=== PATIENT | female | born 1930 | race Hispanic/Latino ===

== ENCOUNTER 2018-02-14 12:30 | Emergency (ER) | payer MEDICARE ==
[2018-02-14 12:30] VITALS: BMI 29.5
[2018-02-14 12:44] VITALS: TEMP 98.3
--- NOTE | 2018-02-14 13:58 | ED PDOC ---
HPI: Hypertension/Hypotension Time Seen by Provider: 02/14/18 13:26 Chief Complaint (Nursing): High Blood Pressure Chief Complaint (Provider): elevated BP History Per: Patient (87 y/o female sent by Dr. Sanderson to ED for elevated BP noted 220/100 prior to prep for catarract surgery. Patient states she took metoprolol 100 mg today. As per daughter, patient's physician had given her medication list with hctz 12. mg daily listed (patient denies having this medication as part of her treatment for BP). Was given iv medication for hypertension by Dr. Era benitez. Denies ay chest pain/sob/abd pain/weakness. Daughter notes patient has been anxious today prior to surgery. Apresoline 10mg iv given by Dr. Sanderson) Past Medical History Reviewed: Historical Data, Nursing Documentation, Vital Signs Vital Signs: Last Vital Signs Temp 98.3 F 02/14/18 12:40 Pulse 80 02/14/18 12:40 Resp 16 02/14/18 12:40 BP 205/88 H 02/14/18 13:39 Pulse Ox 98 02/14/18 12:40 - Medical History PMH: Arthritis (general), HTN, Osteoporosis Denies: Chronic Kidney Disease - Family History Family History: States: No Known Family Hx - Home Medications Home Medications: Ambulatory Orders Medication Instructions Recorded Diclofenac Sodium [Voltaren] 75 mg PO BID 02/14/18 Hydrochlorothiazide [Microzide] 12.5 mg PO DAILY 02/14/18 Metoprolol Succinate XL [Toprol XL] 50 mg PO BID 02/14/18 Omeprazole 40 mg PO DAILY 02/14/18 - Allergies Allergies/Adverse Reactions: Allergies Allergy/AdvReac Type Severity Reaction Status Date / Time No Known Allergies Allergy Verified 02/14/18 12:40 Review of Systems ROS Statement: Except As Marked, All Systems Reviewed And Found Negative Physical Exam - Reviewed Nursing Documentation Reviewed: Yes Vital Signs Reviewed: Yes - Physical Exam Appears: Positive for: Well, Non-toxic, No Acute Distress Head Exam: Positive for: ATRAUMATIC, NORMAL INSPECTION, NORMOCEPHALIC Skin: Positive for: Normal Color, Warm, DRY Eye Exam: Positive for: Normal appearance, EOMI, PERRL. Negative for: Other (left pupil dilated) ENT: Positive for: Normal ENT Inspection Neck: Positive for: Normal, Painless ROM Cardiovascular/Chest: Positive for: Regular Rate, Rhythm Respiratory: Positive for: CNT, Normal Breath Sounds Gastrointestinal/Abdominal: Positive for: Normal Exam, Soft Back: Positive for: Normal Inspection Extremity: Positive for: Normal ROM Neurologic/Psych: Positive for: Alert, Oriented - Laboratory Results Result Diagrams: 02/14/18 13:40 02/14/18 13:40 - ECG O2 Sat by Pulse Oximetry: 98 - Progress ED Course And Treament: hctz 12.5 mg x 1 dose xanax 0.25 mg x 1 dose repeat bp 188/66 Disposition - Clinical Impression Clinical Impression: Hypertensive urgency - Patient ED Disposition Is Patient to be Admitted: No - Disposition Disposition: Routine/Home Disposition Time: 16:29 Condition: FAIR Instructions: High Blood Pressure (DC), DASH Diet
[2018-02-14 14:09] LABS: BASO % 0.6 % (0.0-2.0); EOS # 0.1 K/uL (0.0-0.7); EOS % 1.4 % (0.0-4.0); HEMOGLOBIN 13.6 g/dL (12.0-16.0); LYMPH # 1.6 K/uL (1.0-4.3); LYMPH % 26.3 % (20.0-40.0); MEAN CELL VOLUME 86.1 fl (81.0-99.0); MEAN CORPUSCULAR HEMOGLOBIN 29.9 pg (27.0-31.0); MEAN CORPUSCULAR HGB CONC 34.8 g/dL (33.0-37.0); MONO # 0.4 K/uL (0.0-0.8); MONO % 6.1 % (0.0-10.0); NEUT % 65.6 % (50.0-75.0); NRBC % 0.1 % (0.0-0.0); RBC 4.55 Mil/uL (3.80-5.20); RED CELL DISTRIBUTION WIDTH 14.5 % (11.5-14.5); WHITE BLOOD COUNT 6.1 K/uL (4.8-10.8)
[2018-02-14 14:19] LABS: ALB/GLOB RATIO 1.1 (1.0-2.1); ALBUMIN 3.9 g/dL (3.5-5.0); ALT/SGPT 27 U/L (9-52); AST/SGOT 27 U/L (14-36); BLOOD UREA NITROGEN 15 mg/dl (7-17); CALCIUM 9.7 mg/dL (8.4-10.2); GFR NON-AFRICAN AMERICAN 53
[2018-02-14 14:43] LABS: URINE BACTERIA MOD (<OCC); URINE BILIRUBIN NEGATIVE (NEGATIVE); URINE BLOOD NEGATIVE (NEGATIVE); URINE CLARITY CLEAR (Clear); URINE COLOR STRAW (YELLOW); URINE GLUCOSE (UA) NEG (Normal); URINE LEUKOCYTE ESTERASE NEG Leu/uL (Negative); URINE PROTEIN NEGATIVE (NEGATIVE); URINE UROBILINOGEN 0.2-1.0 mg/dL (0.2-1.0)
[2018-02-14 16:26] VITALS: BP 188/66; PULSE 84; RESP 17
[2018-02-14 16:30] VITALS: O2SAT 98
== END 2018-02-14 16:37 | disposition home or self-care (01) ==
LOC: H.ER 12:30
DX: I10 Essential (primary) hypertension (principal)

== ENCOUNTER 2018-02-28 10:17 | Day surgery (SDC) | payer MEDICARE ==
[2018-02-28] MEDS ORDERED: Maxitrol Opht Susp ONE (12:19)
[2018-02-28] MEDS ORDERED: Lidocaine 1% 20 MG/2 ML PF AMP ONE (12:19)
[2018-02-28] MEDS ORDERED: EPINEPHrine 1 mg/ml (1:1000) Inj ONE (12:19)
[2018-02-28] MEDS ORDERED: Tetracaine 0.5% Ophth 2 ML BOTTLE ONE (12:19)
[2018-02-28] MEDS ORDERED: Chondroitin/Hyaluronate Opth Syringe KIT (0.55 ml-0.5 ml) IO ONE (12:20)
[2018-02-28] MEDS ORDERED: CA CL/K CL/NA CL 500 ML IR ONE (12:20)
[2018-02-28] MEDS ORDERED: STERILE IRRIGATING SOLUTION 45 ML IR ONE (12:20)
[2018-02-28] MEDS ORDERED: Pilocarpine 1% Opht Soln ONE (12:20)
[2018-02-28] MEDS ORDERED: Carbachol 0.01% IO ONE (12:21)
[2018-02-28 13:01] VITALS: RESP 18
[2018-02-28] MEDS ORDERED: Phenylephrine 2.5% Opht Soln OS ONE (13:14)
[2018-02-28] MEDS ORDERED: Flurbiprofen 0.03% Opht SOLN OS SCH (13:15)
[2018-02-28] MEDS ORDERED: Tropicamide 1% Opht 150 DROP/15 ML OS SCH (13:15)
[2018-02-28] MEDS ORDERED: Lactated Ringer's 1,000 ML IV ONE (13:55)
[2018-02-28] MEDS ORDERED: Tetracaine 0.5% Ophth 2 ML BOTTLE OS ONE (14:05)
[2018-02-28] MEDS: Povidone Iodine 5% Opht SOLUTION ONE ×2 (14:10→14:15)
[2018-02-28 16:14] VITALS: O2SAT 99
[2018-02-28 16:17] VITALS: BP 152/78; PULSE 78; TEMP 97.6
--- NOTE | 2018-03-01 11:49 | OP ---
PROCEDURE DATE: 02/28/18 SURGEON: KARENA BRYANT MD ANESTHESIOLOGIST: FLAVIA SOTELO MD ANESTHESIA: LOCAL / IV SEDATION PREOPERATIVE DIAGNOSIS: CATARACT LEFT EYE. POSTOPERATIVE DIAGNOSIS: CATARACT LEFT EYE. OPERATION: CLEAR CORNEAL PHACOEMULSIFICATION WITH LENS IMPLANT LEFT EYE. PREPARATION AND PROCEDURE: After the patient was prepped and draped in the usual manner for sterile ophthalmic surgery, local IV sedation was administered; eye seals were applied to the upper and lower lid margins and an adult wire lid speculum was placed within the lids. Under microsurgical control, a two-step clear corneal incision was made into the anterior chamber. The initial incision was perpendicular to the corneal plane. The second incision with the keratome was placed at a 45-degree angle to the first incision. One cc of one percent Xylocaine MPF was instilled into the anterior chamber to achieve proper intraocular anesthesia. At this time, the Viscoelastic was injected into the anterior chamber for protection of the endothelium and for maintenance of the chamber depth. A 360-degree continuous curvilinear capsulorrhexis was performed using a pre-bent 25-gauge needle. Hydrodissection and hydrodelineation were performed using a Albarado cannula and balanced salt solution. Utilizing the tip of the Albarado cannula, the nucleus was rotated freely within the capsular bag. A standard one-handed phacoemulsification was utilized at this time for sculpting and rotating of the nucleus. The nucleus was fragmented in its entirety and aspirated without any consequence. A standard I&A was carried out for the residual cortical material. No residual material was noted within the capsular bag. The posterior capsule was noted to be clear. Additional Viscoelastic was injected into the capsular bag in preparation for lens implantation. After this has been satisfactorily achieved the intraocular lens injected through the corneal incision into the capsular bag. The intraocular lens was manipulated until it was properly oriented and the Viscoelastic was evacuated from the capsular bag and anterior chamber. The anterior chamber was reformed with balanced salt solution. The corneal incision was irrigated with BSS. The intraocular pressure was found to be within normal limits. This terminated the procedure. The speculum and lid drapes were removed. TobraDex ophthalmic suspension and Pilocarpine 1% drops one drop was applied to the eye. POSTOPERATIVE CONDITION: The patient was brought to the Post anesthesia Recovery area with stable vital signs. DKARENA PASCAL MD
== END 2018-02-28 16:15 | disposition home or self-care (01) ==
LOC: H.OPSURG 10:17
PROVIDERS: ATTEND Ophthalmology
DX: H25.811 Combined forms of age-related cataract, right eye (principal); M19.90 Unspecified osteoarthritis, unspecified site; I10 Essential (primary) hypertension; K21.9 Gastro-esophageal reflux disease without esophagitis; M81.0 Age-related osteoporosis without current pathological fracture
CPT/HCPCS: 66984; J0171; J7120; V2632

== ENCOUNTER 2018-04-04 10:07 | Day surgery (SDC) | payer MEDICARE ==
[2018-04-04] MEDS ORDERED: Lidocaine 1% 20 MG/2 ML PF AMP ONE (10:48)
[2018-04-04] MEDS ORDERED: Tetracaine 0.5% Ophth 2 ML BOTTLE ONE (10:48)
[2018-04-04] MEDS ORDERED: Maxitrol Opht Susp ONE (10:48)
[2018-04-04] MEDS ORDERED: STERILE IRRIGATING SOLUTION 45 ML IR ONE (10:49)
[2018-04-04] MEDS ORDERED: CA CL/K CL/NA CL 500 ML IR ONE (10:49)
[2018-04-04] MEDS ORDERED: Chondroitin/Hyaluronate Opth Syringe KIT (0.55 ml-0.5 ml) IO ONE ×3 (10:49→12:47)
[2018-04-04] MEDS ORDERED: Carbachol 0.01% IO ONE (10:50)
[2018-04-04] MEDS ORDERED: Povidone Iodine 5% Opht SOLUTION ONE (10:50)
[2018-04-04] MEDS ORDERED: Metoprolol Succinate 50 mg XL Tab PO STA ×2 (11:22→13:53)
[2018-04-04] MEDS ORDERED: Phenylephrine 2.5% Opht Soln OD SCH (11:30)
[2018-04-04] MEDS ORDERED: Tropicamide 1% Opht 150 DROP/15 ML OD SCH (11:30)
[2018-04-04] MEDS ORDERED: Flurbiprofen 0.03% Opht SOLN OD SCH (11:30)
[2018-04-04 11:31] VITALS: RESP 18
[2018-04-04] MEDS ORDERED: Phenylephrine 2.5% Opht Soln OD ONE (11:45)
[2018-04-04] MEDS ORDERED: Metoprolol Succinate 50 mg XL Tab PO ONE ×2 (11:45→14:10)
[2018-04-04] MEDS ORDERED: Tropicamide 1% Opht 150 DROP/15 ML RIGHTEYE ONE (11:45)
[2018-04-04] MEDS ORDERED: Midazolam 2 MG/2 ML VIAL ONE (12:37)
[2018-04-04] MEDS ORDERED: Sodium Chloride 0.9% 500 ML IV ONE (12:40)
[2018-04-04] MEDS ORDERED: Lactated Ringer's 500 ML IV ONE (12:40)
[2018-04-04] MEDS: EPINEPHrine 1 mg/ml (1:1000) Inj ONE ×2 (12:46→12:49)
[2018-04-04] MEDS ORDERED: Maxitrol Opht Susp OD ONE ×2 (12:48→12:55)
[2018-04-04] MEDS ORDERED: Acetylcholine 1% Opth System Pack IO ONE ×2 (12:48→12:51)
[2018-04-04] MEDS: Pilocarpine 1% Opht Soln ONE ×2 (12:48→12:53)
[2018-04-04] MEDS ORDERED: BSS 15 ML SOL IR ONE (12:50)
[2018-04-04 14:43] VITALS: PULSE 61
[2018-04-04 15:10] VITALS: BP 204/91; TEMP 98; O2SAT 98
--- NOTE | 2018-04-05 07:28 | OP ---
PROCEDURE DATE: 04/04/2018 SURGEON: KARENA BRYANT MD ANESTHESIOLOGIST: MU PEREZ; MIKE AVILA MD ANESTHESIA: LOCAL / IV SEDATION PREOPERATIVE DIAGNOSIS: CATARACT RIGHT EYE. POSTOPERATIVE DIAGNOSIS: CATARACT RIGHT EYE. OPERATION: CLEAR CORNEAL PHACOEMULSIFICATION WITH LENS IMPLANT RIGHT EYE. PREPARATION AND PROCEDURE: After the patient was prepped and draped in the usual manner for sterile ophthalmic surgery, local IV sedation was administered; eye seals were applied to the upper and lower lid margins and an adult wire lid speculum was placed within the lids. Under microsurgical control, a two-step clear corneal incision was made into the anterior chamber. The initial incision was perpendicular to the corneal plane. The second incision with the keratome was placed at a 45-degree angle to the first incision. One cc of one percent Xylocaine MPF was instilled into the anterior chamber to achieve proper intraocular anesthesia. At this time, the Viscoelastic was injected into the anterior chamber for protection of the endothelium and for maintenance of the chamber depth. A 360-degree continuous curvilinear capsulorrhexis was performed using a pre-bent 25-gauge needle. Hydrodissection and hydrodelineation were performed using a Albarado cannula and balanced salt solution. Utilizing the tip of the Albarado cannula, the nucleus was rotated freely within the capsular bag. A standard one-handed phacoemulsification was utilized at this time for sculpting and rotating of the nucleus. The nucleus was fragmented in its entirety and aspirated without any consequence. A standard I&A was carried out for the residual cortical material. No residual material was noted within the capsular bag. The posterior capsule was noted to be clear. Additional Viscoelastic was injected into the capsular bag in preparation for lens implantation. After this has been satisfactorily achieved the intraocular lens injected through the corneal incision into the capsular bag. The intraocular lens was manipulated until it was properly oriented and the Viscoelastic was evacuated from the capsular bag and anterior chamber. The anterior chamber was reformed with balanced salt solution. The corneal incision was irrigated with BSS. The intraocular pressure was found to be within normal limits. This terminated the procedure. The speculum and lid drapes were removed. TobraDex ophthalmic suspension and Pilocarpine 1% drops one drop was applied to the eye. POSTOPERATIVE CONDITION: The patient was brought to the Post anesthesia Recovery area with stable vital signs. DKARENA PASCAL MD
== END 2018-04-04 16:01 | disposition still patient (30) ==
LOC: H.OPSURG 10:07
PROVIDERS: ATTEND Ophthalmology
DX: H25.811 Combined forms of age-related cataract, right eye (principal); I10 Essential (primary) hypertension; K21.9 Gastro-esophageal reflux disease without esophagitis; M81.0 Age-related osteoporosis without current pathological fracture; Z85.3 Personal history of malignant neoplasm of breast
CPT/HCPCS: 66984; J0171; J2250; J3010; J7030; V2632

== ENCOUNTER 2018-04-04 15:58 | Emergency (ER) | payer MEDICARE ==
[2018-04-04 15:58] VITALS: BMI 29.5
[2018-04-04 16:04] VITALS: RESP 20; O2SAT 98
[2018-04-04 16:08] VITALS: TEMP 98.6
[2018-04-04] MEDS ORDERED: EnalaprilAT 1.25 mg/ml Inj IVP STA (16:18)
[2018-04-04] MEDS ORDERED: EnalaprilAT 1.25 mg/ml Inj ONE ×2 (16:37→16:39)
[2018-04-04 17:30] LABS: BASO % 0.6 % (0.0-2.0); EOS # 0.1 K/uL (0.0-0.7); EOS % 1.7 % (0.0-4.0); HEMOGLOBIN 12.3 g/dL (12.0-16.0); LYMPH # 1.7 K/uL (1.0-4.3); LYMPH % 30.9 % (20.0-40.0); MEAN CORPUSCULAR HEMOGLOBIN 29.4 pg (27.0-31.0); MEAN CORPUSCULAR HGB CONC 33.4 g/dL (33.0-37.0); MEAN PLATELET VOLUME 8.5 fl (7.2-11.7); MONO # 0.4 K/uL (0.0-0.8); MONO % 7.5 % (0.0-10.0); NEUT # 3.4 K/uL (1.8-7.0); NEUT % 59.3 % (50.0-75.0); RBC 4.18 Mil/uL (3.80-5.20); RED CELL DISTRIBUTION WIDTH 14.8 % (11.5-14.5); WHITE BLOOD COUNT 5.7 K/uL (4.8-10.8)
[2018-04-04 17:37] LABS: CALCIUM 9.6 mg/dL (8.4-10.2)
[2018-04-04 17:48] LABS: TROPONIN I 0.052 ng/mL (0.00-0.120)
--- NOTE | 2018-04-04 17:52 | ED PDOC ---
HPI: Hypertension/Hypotension Time Seen by Provider: 04/04/18 16:02 Chief Complaint (Nursing): High Blood Pressure Chief Complaint (Provider): High Blood Pressure History Per: Patient, EMS History/Exam Limitations: no limitations Onset/Duration Of Symptoms: Sudden Onset Current Symptoms Are (Timing): Better Additional Complaint(s): 87 year old female with pmHx of HTN, is referred to ED following cataract surgery prior to arrival. Office staff were re-checking vitals post op when systolic number was noted in the 300s. Patient given Metoprolol at office, however, blood pressure remained constant. She reports compliance with her medications and diet. Patient denies any chest pain, shortness of breath, general discomfort, or similar episodes in the past. At present, patient reports feeling well with no complaints. PCP: Dr. Ronnell Villagomez at [facility] in [place] Past Medical History Reviewed: Historical Data, Nursing Documentation, Vital Signs Vital Signs: Last Vital Signs Temp 98.6 F 04/04/18 16:08 Pulse 60 04/04/18 17:00 Resp 20 04/04/18 16:01 BP 209/60 H 04/04/18 17:00 Pulse Ox 98 04/04/18 16:01 - Medical History PMH: Arthritis, HTN, Osteoporosis Denies: Chronic Kidney Disease - Family History Family History: States: Unknown Family Hx - Immunization History Hx Tetanus Toxoid Vaccination: No Hx Influenza Vaccination: No Hx Pneumococcal Vaccination: No - Home Medications Home Medications: Ambulatory Orders Medication Instructions Recorded Diclofenac Sodium [Voltaren] 75 mg PO BID 02/14/18 Metoprolol Succinate XL [Toprol XL] 50 mg PO BID 02/14/18 Omeprazole 40 mg PO DAILY 02/14/18 Lisinopril [Zestril] 40 mg PO DAILY 02/28/18 - Allergies Allergies/Adverse Reactions: Allergies Allergy/AdvReac Type Severity Reaction Status Date / Time No Known Allergies Allergy Verified 04/04/18 11:06 Review of Systems ROS Statement: Except As Marked, All Systems Reviewed And Found Negative Constitutional: Negative for: Malaise Cardiovascular: Negative for: Chest Pain Respiratory: Negative for: Shortness of Breath Physical Exam - Reviewed Nursing Documentation Reviewed: Yes Vital Signs Reviewed: Yes - Physical Exam Appears: Positive for: Well, Non-toxic, No Acute Distress Head Exam: Positive for: ATRAUMATIC, NORMAL INSPECTION, NORMOCEPHALIC Skin: Positive for: Normal Color Eye Exam: Positive for: Normal appearance, EOMI, PERRL ENT: Positive for: Normal ENT Inspection Neck: Positive for: Normal Cardiovascular/Chest: Positive for: Chest Non Tender Respiratory: Positive for: Normal Breath Sounds. Negative for: Wheezing, Respiratory Distress Gastrointestinal/Abdominal: Positive for: Normal Exam, Soft. Negative for: Tenderness Extremity: Positive for: Normal ROM (upper/lower). Negative for: Pedal Edema, Calf Tenderness Neurologic/Psych: Positive for: Alert, Oriented - Laboratory Results Result Diagrams: 04/04/18 17:22 04/04/18 17:22 - ECG O2 Sat by Pulse Oximetry: 98 (RA) Pulse Ox Interpretation: Normal Medical Decision Making Medical Decision Making: Time: 1618 Initial Plan: work-up for HTN * Labs with troponin * Lopressor 5mg IVP * EKG * IV fluids * Vasotec 2.5mg IVP Scribe Attestation: Documented by Nanda Faith, acting as a scribe for Noris Shirley MD. Provider Scribe Attestation: All medical record entries made by the Scribe were at my direction and personally dictated by me. I have reviewed the chart and agree that the record accurately reflects my personal performance of the history, physical exam, medical decision making, and the department course for this patient. I have also personally directed, reviewed, and agree with the discharge instructions and disposition. 2015: Pt with improved BP. Pt remains symptom free and labs are without abnormality. EKG unremarkable. Pt to follow up with PMD within one week. Disposition - Clinical Impression Clinical Impression: Hypertension - Disposition Disposition: Routine/Home Disposition Time: 20:22 Condition: IMPROVED Additional Instructions: Follow up with primary medical doctor for further evaluation. Return to the emergency department if you develop chest pain, weakness, numbness, or other new symptoms. Instructions: High Blood Pressure (DC) Forms: [facility] (Kyrgyz) Print Language: ZAMBIAN
[2018-04-04] MEDS ORDERED: Sodium Chloride 0.9% 1,000 ML IV STA (18:10)
[2018-04-04] MEDS ORDERED: Metoprolol 1 mg/ml Inj IVP STA (18:10)
[2018-04-04] MEDS ORDERED: Metoprolol 1 mg/ml Inj ONE (18:19)
[2018-04-04 20:20] VITALS: BP 175/109; PULSE 68
== END 2018-04-04 20:36 | disposition home or self-care (01) ==
LOC: H.ER 15:58
DX: I10 Essential (primary) hypertension (principal); M81.0 Age-related osteoporosis without current pathological fracture
CPT/HCPCS: 80048; 84484; 85025; 96374; 96375; 99285; J7030